=== PATIENT | female | born 1965 | race Caucasian/White ===

== ENCOUNTER 2021-05-03 06:51 | Day surgery (SDC) | payer MEDICARE, BC ==
[2021-05-03] MEDS ORDERED: Sodium Chloride 0.9% 1,000 ML IV SCH (07:30)
[2021-05-03] MEDS ORDERED: Propofol 200 MG/20 ML SDV ONE (07:41)
[2021-05-03] MEDS ORDERED: Midazolam 1 MG/ML 2 ML SDV ONE (07:42)
[2021-05-03] MEDS ORDERED: fentaNYL 100 MCG/2 ML SDV ONE (07:42)
[2021-05-03 10:12] VITALS: BP 124/80; PULSE 80
--- NOTE | 2021-05-03 11:15 | OR ---
DATE OF PROCEDURE: 05/03/2021 SURGEON: Roscoe Sinclair MD PROCEDURE: Colonoscopy. FINDINGS: Poor colon prep. PREOPERATIVE DIAGNOSIS: Gastrointestinal bleed. POSTOPERATIVE DIAGNOSIS: Gastrointestinal bleed. RISKS: Risks, benefits, alternatives, and limitations including, but not limited to infection, bleeding, perforation, false positives, false negatives were explained to the patient and the patient wished to proceed. ANESTHETIC: MAC. PROCEDURE IN DETAIL: The patient was placed in left lateral decubitus position. Digital rectal exam was performed without abnormality. Scope was introduced and advanced atraumatically to the ileocecal valve. A photo was taken of this. However, large amount of solid and liquid stool remained throughout the entire colon essentially making this inadequate for diagnostic purposes. No abnormalities on retroflexion, but also partially occluded. The patient will be scheduled for repeat colonoscopy with longer prep. Roscoe Sinclair MD /[id number]
== END 2021-05-03 10:14 | disposition home or self-care (01) ==
LOC: JP.SDS 06:51
PROVIDERS: ATTEND Surgery
DX: K92.2 Gastrointestinal hemorrhage, unspecified (principal); I10 Essential (primary) hypertension; E11.9 Type 2 diabetes mellitus without complications
CPT/HCPCS: 45378; J2250; J2704; J3010; J7030

== ENCOUNTER 2021-05-04 08:40 | Day surgery (SDC) | payer MEDICARE, BC ==
[2021-05-04] MEDS ORDERED: fentaNYL 100 MCG/2 ML SDV ONE (09:13)
[2021-05-04] MEDS ORDERED: Midazolam 1 MG/ML 2 ML SDV ONE (09:13)
[2021-05-04] MEDS ORDERED: Propofol 200 MG/20 ML SDV ONE ×2 (09:13→11:10)
[2021-05-04] MEDS ORDERED: Dextrose 5%-Lactated Ringers 1,000 ML IV SCH (09:15)
[2021-05-04 13:18] VITALS: BP 115/73; PULSE 95
--- NOTE | 2021-05-06 17:50 | OR ---
DATE OF PROCEDURE: 05/04/2021 SURGEON: Antonio Ty MD PREOPERATIVE DIAGNOSIS: History of blood in stool. POSTOPERATIVE DIAGNOSES: 1. History of blood in stool with no overt gastrointestinal bleeding site identified. 2. Single small polyp, distal sigmoid colon (15 cm from dentate line). OPERATIVE PROCEDURE: Flexible colonoscopy with polypectomy by snare technique. ANESTHESIA: IV sedation. INDICATIONS FOR PROCEDURE: A 55-year-old female presenting for a colonoscopy. She does report some blood in her stool. She was initially to undergo a colonoscopy yesterday per Dr. Sinclair, but the prep was inadequate, and the patient is readmitted at this time after what appears to be likely a more adequate prep having been completed. Plan is to do a flexible colonoscopy with biopsies and polypectomies. Potential risks including bleeding and perforation were discussed, and the patient wishes to proceed. DETAILS OF PROCEDURE: The patient was taken to the operating room and placed in a left lateral decubitus position. IV sedation was administered. After which, the initial digital rectal exam was performed and was unremarkable. Colonoscope was then passed into the rectum with retroflexion revealing uncomplicated hemorrhoidal columns. Scope was eventually passed to the level of the cecum. The prep at this time was quite good. There was some liquid stool present, but the vast majority of mucosal surfaces were well seen. To that level, the patient was noted to have a single polyp at 15 cm from the dentate line. This was roughly 0.5 cm in diameter and was excised by means of the cautery snare technique and retrieved for histologic evaluation. Good hemostasis at the polypectomy site was then identified. Apart from the polyp, no other pathology was seen. There was no evidence of diverticular disease, no areas of colitis, no additional polyps or signs of neoplasia. It is notable that the patient has a history of hepatic cirrhosis, but there was in fact no significant bulging of hemorrhoidal veins or significant inflammations either. Throughout the operation, nothing was seen that would explain blood in the stool. Assuming the present pathology report on the polyp is benign, a repeat colonoscopy should be entertained in about 3 years. Antonio Ty MD /[id number]
== END 2021-05-04 12:30 | disposition home or self-care (01) ==
LOC: JP.SDS 08:40
PROVIDERS: ATTEND Surgery
DX: D12.5 Benign neoplasm of sigmoid colon (principal); K64.9 Unspecified hemorrhoids; I10 Essential (primary) hypertension; E11.9 Type 2 diabetes mellitus without complications
CPT/HCPCS: 45385; 88305; J2250; J2704; J3010; J7121

== ENCOUNTER 2023-04-06 06:24 | Day surgery (SDC) | payer MEDICARE, BC ==
[2023-04-06] MEDS ORDERED: Sodium Chloride 0.9% 10 ML Syringe FLUSH PRN (07:00)
[2023-04-06 08:25] VITALS: BP 138/73; PULSE 85
== END 2023-04-06 08:30 | disposition home or self-care (01) ==
LOC: JP.SDS 06:24
PROVIDERS: ATTEND Ophthalmology
DX: E11.36 Type 2 diabetes mellitus with diabetic cataract (principal); H26.9 Unspecified cataract; E78.5 Hyperlipidemia, unspecified; I10 Essential (primary) hypertension; E66.9 Obesity, unspecified; F17.200 Nicotine dependence, unspecified, uncomplicated; Z88.2 Allergy status to sulfonamides; Z88.1 Allergy status to other antibiotic agents; Z88.0 Allergy status to penicillin; Z88.8 Allergy status to other drugs, medicaments and biological substances; Z68.38 Body mass index [BMI] 38.0-38.9, adult
CPT/HCPCS: 66984; J3490; V2632

== ENCOUNTER 2023-04-20 07:18 | Day surgery (SDC) | payer MEDICARE, BC ==
[2023-04-20] MEDS ORDERED: Sodium Chloride 0.9% 10 ML Syringe FLUSH PRN (08:30)
[2023-04-20 08:48] VITALS: BP 156/83; PULSE 78
== END 2023-04-20 08:51 | disposition home or self-care (01) ==
LOC: JP.SDS 07:18
PROVIDERS: ATTEND Ophthalmology
DX: E11.36 Type 2 diabetes mellitus with diabetic cataract (principal); H26.9 Unspecified cataract; M19.90 Unspecified osteoarthritis, unspecified site; I12.9 Hypertensive chronic kidney disease with stage 1 through stage 4 chronic kidney disease, or unspecified chronic kidney disease; M41.9 Scoliosis, unspecified; E03.9 Hypothyroidism, unspecified; Z88.2 Allergy status to sulfonamides; Z88.5 Allergy status to narcotic agent; Z88.1 Allergy status to other antibiotic agents; Z88.8 Allergy status to other drugs, medicaments and biological substances
CPT/HCPCS: V2632